=== PATIENT | male | born 1960 | race Caucasian/White ===

== ENCOUNTER 2019-03-03 10:59 | Outpatient (CLI) | payer BC | END 2019-03-03 23:59 | disposition home or self-care (01) | LOC: CARD DIAG 10:59 | PROVIDERS: ATTEND Internal Medicine Critical Care Medicine | DX: R06.02 Shortness of breath (principal); Z87.891 Personal history of nicotine dependence | CPT/HCPCS: 93306 ==

== ENCOUNTER 2019-10-23 13:54 | Inpatient (IN) | payer BC ==
[~2019-10-23] VITALS: Ht 177.8 cm; Wt 88.6 kg
[2019-10-23] MEDS ORDERED: CefTRIAXone 2gm/D5W 50ml 50 ML IV ONE (14:10)
[2019-10-23] MEDS ORDERED: vancomycin/NS 1 GM ADD-VANTAGE 250 ML IV ONE (14:10)
[2019-10-23 14:34] LABS: BASOPHILS # (AUTO) 0.1 X10'3 (0-0.2); BASOPHILS % (AUTO) 0.8 % (0-1); EOSINOPHILS # (AUTO) 0.6 X10'3 (0-0.9); EOSINOPHILS % (AUTO) 5.1 % (0-6); HEMATOCRIT 41.4 % (42.0-52.0); HEMOGLOBIN 14.2 g/dl (14.0-17.9); LYMPHOCYTES # (AUTO) 3.5 X10'3 (1.1-4.8); LYMPHOCYTES % (AUTO) 27.8 % (21-51); MEAN CORPUSCULAR HEMOGLOBIN 34.2 PG (27.0-31.0); MEAN CORPUSCULAR HGB CONC 34.4 g/dL (33.0-36.5); MEAN CORPUSCULAR VOLUME 99.4 FL (78-98); MEAN PLATELET VOLUME 9.5 FL (7.4-10.4); MONOCYTES % (AUTO) 15.8 % (2-12); NEUTROPHILS # (AUTO) 6.4 X10'3 (1.8-7.7); NEUTROPHILS % (AUTO) 50.5 % (42-75); PLATELET COUNT 311 X10'3 (140-440); RED BLOOD COUNT 4.17 X10'6 (4.70-6.10); RED CELL DISTRIBUTION WIDTH 13.2 % (11.5-14.5); WHITE BLOOD COUNT 12.7 X10'3 (4.5-11.0)
[2019-10-23 14:48] LABS: PARTIAL THROMBOPLASTIN TIME 27 SECONDS (22-32)
[2019-10-23 14:49] LABS: ALANINE AMINOTRANSFERASE 21 U/L (12-78); ALBUMIN 2.9 G/DL (3.4-5.0); ALBUMIN/GLOBULIN RATIO 0.8 (1.1-1.5); ALKALINE PHOSPHATASE 75 IU/L (46-116); ANION GAP 6 (8-16); ASPARTATE AMINO TRANSFERASE 23 U/L (10-37); BILIRUBIN,TOTAL 0.4 MG/DL (0.1-1.0); BLOOD UREA NITROGEN 9 MG/DL (7-18); BUN/CREATININE RATIO 10.2 (5.4-32.0); CALCIUM 8.7 MG/DL (8.5-10.1); CHLORIDE 100 MMOL/L (99-107); CREATININE 0.88 MG/DL (0.60-1.10); GLUCOSE 122 MG/DL (70-104); MAGNESIUM 1.7 MG/DL (1.5-2.4); SODIUM 136 MMOL/L (135-145); TOTAL CARBON DIOXIDE 30.3 MMOL/L (24-32); TOTAL PROTEIN 6.7 G/DL (6.4-8.2); eGFR 89 ML/MIN
[2019-10-23 14:51] LABS: POTASSIUM 4.1 MMOL/L (3.5-5.1)
[2019-10-23] MEDS ORDERED: ALBU2.5V10 PO (15:52)
[2019-10-23] MEDS ORDERED: magnesium Cl slow-release 64mg tablet PO PRN (16:00)
[2019-10-23] MEDS ORDERED: acetaminophen 325mg tablet PO PRN (16:00)
[2019-10-23] MEDS ORDERED: magnesium 2GM in 50ml NS 50 ML IV PRN (16:00)
[2019-10-23] MEDS ORDERED: potassium CL 10mEq/100ml bag 100 ML IV PRN ×2 (16:00)
[2019-10-23] MEDS ORDERED: potassium Cl 20 mEq SR tablet PO PRN ×2 (16:00)
[2019-10-23] MEDS ORDERED: magnesium 4gm in 100ml NS 100 ML IV PRN (16:00)
[2019-10-23] MEDS ORDERED: ondansetron/PF 4mg/2ml inj IV PRN (16:00)
[2019-10-23] MEDS ORDERED: morphine 4 MG/ML inj SYRINge IV ONE (16:15)
[2019-10-23] MEDS ORDERED: morphine 4 MG/ML inj SYRINge IV PRN (17:40)
[2019-10-23 18:00] VITALS: BP 113/74
--- NOTE | 2019-10-23 18:00 | NUR ---
Patient in room [facility]. I have received report from day shift nurse and had the opportunity to ask questions and assume patient care. Addendum: 10/24/19 at 0322 by Dinah Ortiz RN Amended: Links added.
--- NOTE | 2019-10-23 18:15 | NUR ---
Received report from ER. Pt. tucked into bed. abd. assessed and draining sx wounds covered with bandaids. Pt. orientated to room. Gave report to Dinah HECK.
[2019-10-23] MEDS ORDERED: FLU VACC QS2019-20 36MOS UP/PF 60 MCG/0.5 ML SYRINGE IMVAC ONE (20:15)
[2019-10-23] MEDS ORDERED: IPRA3AMP9 IH (20:17)
[2019-10-23] MEDS ORDERED: GLYC10.7 INH (20:17)
[2019-10-23] MEDS: morphine 2 MG/ML inj. syringe IV PRN (20:24)
[2019-10-24] VITALS: BP 118/73
[2019-10-24] MEDS: VANCOmycin 1250MG/NS 250ml Bag 250 ML IV SCH ×4 (00:25→23:33)
[2019-10-24] MEDS: morphine 2 MG/ML inj. syringe IV PRN ×3 (03:42→18:48)
[2019-10-24 04:45] LABS: BASOPHILS # (AUTO) 0.1 X10'3 (0-0.2); BASOPHILS % (AUTO) 0.5 % (0-1); EOSINOPHILS # (AUTO) 0.6 X10'3 (0-0.9); EOSINOPHILS % (AUTO) 4.8 % (0-6); HEMATOCRIT 39.3 % (42.0-52.0); HEMOGLOBIN 13.3 g/dl (14.0-17.9); LYMPHOCYTES # (AUTO) 2.9 X10'3 (1.1-4.8); LYMPHOCYTES % (AUTO) 22.1 % (21-51); MEAN CORPUSCULAR HEMOGLOBIN 34.1 PG (27.0-31.0); MEAN CORPUSCULAR VOLUME 100.4 FL (78-98); MEAN PLATELET VOLUME 10.1 FL (7.4-10.4); MONOCYTES # (AUTO) 1.8 X10'3 (0-0.9); MONOCYTES % (AUTO) 13.5 % (2-12); NEUTROPHILS # (AUTO) 7.8 X10'3 (1.8-7.7); NEUTROPHILS % (AUTO) 59.1 % (42-75); PLATELET COUNT 310 X10'3 (140-440); RED BLOOD COUNT 3.91 X10'6 (4.70-6.10); RED CELL DISTRIBUTION WIDTH 13.3 % (11.5-14.5); WHITE BLOOD COUNT 13.1 X10'3 (4.5-11.0)
[2019-10-24 04:56] LABS: ALBUMIN 2.7 G/DL (3.4-5.0); ANION GAP 7 (8-16); BLOOD UREA NITROGEN 7 MG/DL (7-18); BUN/CREATININE RATIO 8.3 (5.4-32.0); CALCIUM 8.8 MG/DL (8.5-10.1); CHLORIDE 100 MMOL/L (99-107); CREATININE 0.84 MG/DL (0.60-1.10); GLUCOSE 117 MG/DL (70-104); MAGNESIUM 1.6 MG/DL (1.5-2.4); POTASSIUM 4.2 MMOL/L (3.5-5.1); SODIUM 136 MMOL/L (135-145); TOTAL CARBON DIOXIDE 28.7 MMOL/L (24-32); eGFR > 90 ML/MIN
[2019-10-24 07:00] VITALS: BP 110/59
--- NOTE | 2019-10-24 07:03 | NUR ---
Patient in room [facility]. I have received report from Dinah HECK and had the opportunity to ask questions and assume patient care.
[2019-10-24] MEDS: K and/or MAG REPLACEMENT MC SCH (08:00)
[2019-10-24] MEDS: oxyCODONE/APAP 10/325mg tablet PO PRN (10:54)
--- NOTE | 2019-10-24 12:22 | NUR ---
Page to Dr Reis: [facility] 0498 re [place] 345 please call regarding nicotine gum and breathing treatments, thank you
--- NOTE | 2019-10-24 12:50 | NUR ---
Spoke to Dr. Reis regarding patient's concern of continuing home meds and if he can take Nicotine gum. Dr. Reis said to me that she will be address the medication reconciliation list and instructed me to offer Nicotine patch to patient.
--- NOTE | 2019-10-24 13:08 | NUR ---
Patient stated that he quit smoking a year ago and that he has been using Nicotine gum to prevent craving.
--- NOTE | 2019-10-24 13:12 | NUR ---
Paged Dr. Reis: [facility] Regulo HECK ext [phone]. RE: Sam Johnson. Patient stated that he quit smoking a year ago but has been using Nicotine gum to prevent craving. Are you ok ordering the Nicotine gum? Prior to quitting smoking he smokes 2-3 pack/day
--- NOTE | 2019-10-24 16:33 | NUR ---
Pt admit w/ post-op abdominal wall cellulitis PO 75% avg proteins and milks first meal so far meeting protein needs. Addendum: 10/24/19 at [address] Amended: Links added.
[2019-10-24] MEDS ORDERED: nicotine prolacrilex 2mg gum BC PRN (16:40)
[2019-10-24] MEDS ORDERED: albuterol 2.5 MG/3 ML nebule NEB PRN (16:40)
[2019-10-24 18:00] VITALS: BP 126/69
--- NOTE | 2019-10-24 18:36 | NUR ---
Problems reprioritized. Patient report given, questions answered & plan of care reviewed with Prudence RN.
--- NOTE | 2019-10-24 18:53 | NUR ---
Patient in room [facility]. I have received report from Regulo HECK and had the opportunity to ask questions and assume patient care. Patient is with family members and requested pain meds and was given.
[2019-10-24] MEDS: GLYCOPYRROLATE IH SCH (19:33)
[2019-10-24] MEDS: FORMOTEROL FUM IH SCH (19:33)
[2019-10-24] MEDS: lactobacillus rhamnosus 10,000 MMU CELLS/CAPSULE PO SCH (20:41)
[2019-10-24] MEDS: ipratropium/albuterol 3ml nebule IH SCH (21:03)
[2019-10-24] MEDS: diatr meglu/diatrizoate 30ml oral sol.-(3 dose) bottle PO SCH (22:00)
[2019-10-24] MEDS ORDERED: VANCOMYCIN LEVEL IV ONE (22:30)
[2019-10-25] VITALS: BP 118/57
[2019-10-25 05:14] LABS: BASOPHILS # (AUTO) 0.1 X10'3 (0-0.2); BASOPHILS % (AUTO) 0.8 % (0-1); EOSINOPHILS # (AUTO) 0.6 X10'3 (0-0.9); EOSINOPHILS % (AUTO) 4.6 % (0-6); HEMATOCRIT 39.4 % (42.0-52.0); HEMOGLOBIN 13.3 g/dl (14.0-17.9); LYMPHOCYTES # (AUTO) 2.3 X10'3 (1.1-4.8); LYMPHOCYTES % (AUTO) 18.5 % (21-51); MEAN CORPUSCULAR HEMOGLOBIN 34.1 PG (27.0-31.0); MEAN CORPUSCULAR HGB CONC 33.8 g/dL (33.0-36.5); MEAN CORPUSCULAR VOLUME 100.8 FL (78-98); MEAN PLATELET VOLUME 9.3 FL (7.4-10.4); MONOCYTES # (AUTO) 1.6 X10'3 (0-0.9); MONOCYTES % (AUTO) 13.2 % (2-12); NEUTROPHILS # (AUTO) 7.8 X10'3 (1.8-7.7); NEUTROPHILS % (AUTO) 62.9 % (42-75); PLATELET COUNT 339 X10'3 (140-440); WHITE BLOOD COUNT 12.3 X10'3 (4.5-11.0)
[2019-10-25 05:32] LABS: ALBUMIN 2.6 G/DL (3.4-5.0); ANION GAP 10 (8-16); BLOOD UREA NITROGEN 14 MG/DL (7-18); BUN/CREATININE RATIO 14.9 (5.4-32.0); CALCIUM 8.9 MG/DL (8.5-10.1); CHLORIDE 100 MMOL/L (99-107); CREATININE 0.94 MG/DL (0.60-1.10); GLUCOSE 108 MG/DL (70-104); MAGNESIUM 1.9 MG/DL (1.5-2.4); SODIUM 139 MMOL/L (135-145); eGFR 82 ML/MIN
[2019-10-25] MEDS: morphine 2 MG/ML inj. syringe IV PRN ×4 (05:50→22:21)
--- NOTE | 2019-10-25 06:35 | NUR ---
Problems reprioritized. Patient report given, questions answered & plan of care reviewed with Bailey HECK.
[2019-10-25] MEDS: K and/or MAG REPLACEMENT MC SCH (07:07)
[2019-10-25] MEDS: lactobacillus rhamnosus 10,000 MMU CELLS/CAPSULE PO SCH ×2 (07:12→20:03)
[2019-10-25] MEDS: diatr meglu/diatrizoate 30ml oral sol.-(3 dose) bottle PO SCH ×2 (07:12→08:56)
[2019-10-25] MEDS: GLYCOPYRROLATE IH SCH ×2 (07:37→21:17)
[2019-10-25] MEDS: FORMOTEROL FUM IH SCH ×2 (07:37→21:17)
[2019-10-25] MEDS: VANCOmycin 1250MG/NS 250ml Bag 250 ML IV SCH ×3 (08:15→23:11)
[2019-10-25] MEDS: ipratropium/albuterol 3ml nebule IH SCH ×2 (08:39→21:16)
[2019-10-25] MEDS ORDERED: iohexol 300mg/ml 100ml inj. ONE (08:41)
[2019-10-25 09:39] VITALS: BP 113/77
[2019-10-25] MEDS: oxyCODONE/APAP 10/325mg tablet PO PRN ×2 (12:21→20:03)
[2019-10-25 18:00] VITALS: BP 115/69
--- NOTE | 2019-10-25 18:32 | NUR ---
Problems reprioritized. Patient report given, questions answered & plan of care reviewed with PRUDENCE.
--- NOTE | 2019-10-25 18:58 | NUR ---
Patient in room [facility]. I have received report from Bailey HECK and had the opportunity to ask questions and assume patient care. Patient is with family members by his bedside and patient denied having pain.
--- NOTE | 2019-10-25 19:00 | NUR ---
Patient in room [facility]. I have received report from Bailey HECK and had the opportunity to ask questions and assume patient care.
[2019-10-26] VITALS: BP 100/50
[2019-10-26] MEDS: oxyCODONE/APAP 10/325mg tablet PO PRN ×5 (03:21→20:37)
[2019-10-26] MEDS: morphine 2 MG/ML inj. syringe IV PRN ×5 (05:38→22:54)
[2019-10-26 06:30] VITALS: BP 98/59
--- NOTE | 2019-10-26 06:35 | NUR ---
Patient in room [facility]. I have received report from UMANG Ward and had the opportunity to ask questions and assume patient care.
--- NOTE | 2019-10-26 06:43 | NUR ---
Report given. Patient is resting and shows no apparent distress. He requested for pain medications and was given per MD order.
[2019-10-26 06:57] LABS: BASOPHILS # (AUTO) 0.1 X10'3 (0-0.2); EOSINOPHILS # (AUTO) 0.7 X10'3 (0-0.9); EOSINOPHILS % (AUTO) 6.7 % (0-6); HEMATOCRIT 38.6 % (42.0-52.0); HEMOGLOBIN 13.3 g/dl (14.0-17.9); LYMPHOCYTES # (AUTO) 2.5 X10'3 (1.1-4.8); LYMPHOCYTES % (AUTO) 24.3 % (21-51); MEAN CORPUSCULAR HEMOGLOBIN 34.4 PG (27.0-31.0); MEAN CORPUSCULAR HGB CONC 34.4 g/dL (33.0-36.5); MEAN CORPUSCULAR VOLUME 99.8 FL (78-98); MEAN PLATELET VOLUME 8.9 FL (7.4-10.4); MONOCYTES # (AUTO) 1.7 X10'3 (0-0.9); MONOCYTES % (AUTO) 16.9 % (2-12); NEUTROPHILS # (AUTO) 5.3 X10'3 (1.8-7.7); NEUTROPHILS % (AUTO) 51.1 % (42-75); PLATELET COUNT 364 X10'3 (140-440); RED BLOOD COUNT 3.87 X10'6 (4.70-6.10); RED CELL DISTRIBUTION WIDTH 12.9 % (11.5-14.5); WHITE BLOOD COUNT 10.4 X10'3 (4.5-11.0)
[2019-10-26 07:12] LABS: ALBUMIN 2.4 G/DL (3.4-5.0); ANION GAP 6 (8-16); BLOOD UREA NITROGEN 12 MG/DL (7-18); BUN/CREATININE RATIO 12.2 (5.4-32.0); CALCIUM 8.7 MG/DL (8.5-10.1); CHLORIDE 102 MMOL/L (99-107); CREATININE 0.98 MG/DL (0.60-1.10); GLUCOSE 107 MG/DL (70-104); MAGNESIUM 1.7 MG/DL (1.5-2.4); SODIUM 137 MMOL/L (135-145); TOTAL CARBON DIOXIDE 28.6 MMOL/L (24-32); eGFR 78 ML/MIN
[2019-10-26] MEDS: GLYCOPYRROLATE IH SCH (08:00)
[2019-10-26] MEDS: FORMOTEROL FUM IH SCH (08:00)
[2019-10-26] MEDS: K and/or MAG REPLACEMENT MC SCH (08:00)
[2019-10-26] MEDS: lactobacillus rhamnosus 10,000 MMU CELLS/CAPSULE PO SCH ×2 (08:14→19:46)
[2019-10-26] MEDS: VANCOmycin 1250MG/NS 250ml Bag 250 ML IV SCH ×3 (08:16→23:11)
[2019-10-26] MEDS: ipratropium/albuterol 3ml nebule IH SCH ×2 (10:20→20:23)
[2019-10-26 11:00] VITALS: BP 124/66
[2019-10-26 18:00] VITALS: BP 122/69
--- NOTE | 2019-10-26 18:20 | NUR ---
Problems reprioritized. Patient report given, questions answered & plan of care reviewed with UMANG Cerda.
[2019-10-26] MEDS ORDERED: morphine 2 MG/ML inj. syringe IV PRN (22:00)
[2019-10-26 23:56] VITALS: BP 110/58
[2019-10-27 04:21] LABS: ALBUMIN 2.5 G/DL (3.4-5.0); ANION GAP 9 (8-16); BLOOD UREA NITROGEN 16 MG/DL (7-18); BUN/CREATININE RATIO 17.4 (5.4-32.0); CALCIUM 8.7 MG/DL (8.5-10.1); CHLORIDE 100 MMOL/L (99-107); CREATININE 0.92 MG/DL (0.60-1.10); GLUCOSE 96 MG/DL (70-104); MAGNESIUM 1.8 MG/DL (1.5-2.4); POTASSIUM 3.8 MMOL/L (3.5-5.1); SODIUM 137 MMOL/L (135-145); TOTAL CARBON DIOXIDE 28.2 MMOL/L (24-32); eGFR 84 ML/MIN
[2019-10-27 04:23] LABS: MEAN CORPUSCULAR HEMOGLOBIN 34.2 PG (27.0-31.0)
[2019-10-27 04:26] LABS: BASOPHILS # (AUTO) 0.1 X10'3 (0-0.2); BASOPHILS % (AUTO) 0.6 % (0-1); EOSINOPHILS # (AUTO) 0.4 X10'3 (0-0.9); EOSINOPHILS % (AUTO) 3.5 % (0-6); HEMOGLOBIN 13.6 g/dl (14.0-17.9); LYMPHOCYTES # (AUTO) 2.5 X10'3 (1.1-4.8); MEAN CORPUSCULAR HGB CONC 34.9 g/dL (33.0-36.5); MEAN CORPUSCULAR VOLUME 98.1 FL (78-98); MEAN PLATELET VOLUME 9.1 FL (7.4-10.4); MONOCYTES # (AUTO) 1.9 X10'3 (0-0.9); MONOCYTES % (AUTO) 17.2 % (2-12); NEUTROPHILS # (AUTO) 6.1 X10'3 (1.8-7.7); NEUTROPHILS % (AUTO) 55.7 % (42-75); PLATELET COUNT 409 X10'3 (140-440); RED BLOOD COUNT 3.97 X10'6 (4.70-6.10); RED CELL DISTRIBUTION WIDTH 12.8 % (11.5-14.5)
--- NOTE | 2019-10-27 06:05 | NUR ---
Patient in room [facility]. I have received report from UMANG Cerda and had the opportunity to ask questions and assume patient care.
[2019-10-27 06:30] VITALS: BP 122/69
[2019-10-27] MEDS: K and/or MAG REPLACEMENT MC SCH (06:38)
[2019-10-27] MEDS: VANCOmycin 1250MG/NS 250ml Bag 250 ML IV SCH (07:32)
[2019-10-27] MEDS: lactobacillus rhamnosus 10,000 MMU CELLS/CAPSULE PO SCH (07:32)
[2019-10-27] MEDS: oxyCODONE/APAP 10/325mg tablet PO PRN ×2 (07:33→11:38)
[2019-10-27] MEDS: ipratropium/albuterol 3ml nebule IH SCH (08:48)
--- NOTE | 2019-10-27 10:28 | NUR ---
Student documentation: I have reviewed and agree with all interventions, assessments performed and documented by Ester Collins student RN.
[2019-10-27 11:00] VITALS: BP 101/66
[2019-10-27] MEDS ORDERED: CLIN150C2 PO (14:20)
[2019-10-27] MEDS ORDERED: LACT1CAP26 PO (14:20)
[2019-10-27] MEDS ORDERED: VANCOMYCIN LEVEL IV ONE (14:30)
--- NOTE | 2019-10-27 15:20 | NUR ---
DC inst provided to pt. IV DC'd, tip intact. All belongings sent w/pt. WC to front lobby.
== END 2019-10-27 15:20 | disposition home or self-care (01) | DRG 863 ==
LOC: ER 13:54 → ED HOLD 15:56 → SUR 3N 17:54
PROVIDERS: ADMIT Internal Medicine; ATTEND Family Medicine
PROC: 3E02340 Introduction of Influenza Vaccine into Muscle, Percutaneous Approach (ICD-10-PCS; principal; 2019-10-23)
PROC: BW211ZZ Computerized Tomography (CT Scan) of Abdomen and Pelvis using Low Osmolar Contrast (ICD-10-PCS; 2019-10-25)
DX: T81.40XA Infection following a procedure, unspecified, initial encounter (principal); L03.311 Cellulitis of abdominal wall; J44.9 Chronic obstructive pulmonary disease, unspecified; Y83.8 Other surgical procedures as the cause of abnormal reaction of the patient, or of later complication, without mention of misadventure at the time of the procedure; Z85.038 Personal history of other malignant neoplasm of large intestine; Z87.891 Personal history of nicotine dependence; Z90.49 Acquired absence of other specified parts of digestive tract; Z90.81 Acquired absence of spleen; Z23 Encounter for immunization; Z79.899 Other long term (current) drug therapy; Z88.8 Allergy status to other drugs, medicaments and biological substances; Z91.012 Allergy to eggs; Y92.89 Other specified places as the place of occurrence of the external cause
CPT/HCPCS: 36415; 71045; 74177; 80048; 80053; 80202; 83605; 83735; 84145; 85025; 85610; 85730; 87040; 87070; 87077; 87081; 87186; 94640; 94760; G0378; J0696; J2270; J3370; Q2037; Q9963; Q9967